=== PATIENT | male | born 1970 | race Caucasian/White ===

== ENCOUNTER 2018-07-07 10:48 | Day surgery (SDC) | payer OTHER ==
[2018-07-07] MEDS ORDERED: LIDOCAINE 1% 20 ML VIAL (10MG/ML) FOR IV START INTRADERMA ONE (13:28)
[2018-07-07] MEDS ORDERED: LACTATED RINGERS 1,000 ML IV ONE (13:30)
[2018-07-07 13:31] VITALS: RESP 16; TEMP 97.8
[2018-07-07] MEDS ORDERED: PROPOFOL 10 MG/ML 20 ML VIAL IV ONE (14:48)
--- NOTE | 2018-07-07 15:25 | P.PCN ---
Date of Procedure: 07/07/18 Procedure(s) Performed: Procedure: Total colonoscopy and biopsy. Preoperative diagnosis: Screening for neoplasia. Postoperative diagnosis: 2 diminutive polyps biopsied but no large polyps or cancer. Preparation: HalfLytely prep. Sedation: Was provided by anesthesia. Brief clinical history: The patient is a 48-year-old male who is scheduled for this evaluation for screening for neoplasia, age being his risk factor. The patient has no abdominal complaints, bleeding or anemia. This would be his first colonoscopy. Procedure: With the patient on his left lateral decubitus position and after informed consent and adequate sedation, the perianal area was inspected and it did not show any fissures or fistulas. There were no masses felt on digital rectal examination. The Olympus CFQ 160L video colonoscope was then inserted in the rectum in the usual fashion and advanced to the cecum. There were no obvious diverticular orifices noted. Two diminutive polyps were seen, 1 in the right colon and one in the sigmoid and these were biopsied, but there were no large polyps or tumors were seen. The mucosa appeared healthy. I retroflexed the endoscope in the rectum before the endoscope was withdrawn. The patient tolerated the procedure well. Plan: The patient was reassured. Discussed dietary measures. He will follow up with you as planned and I recommended repeat exam in 5 years.
[2018-07-07 15:41] VITALS: BP 111/76; PULSE 64
== END 2018-07-07 15:57 | disposition home or self-care (01) ==
LOC: ORWHC2ENDO 10:48
DX: Z12.11 Encounter for screening for malignant neoplasm of colon (principal); D12.2 Benign neoplasm of ascending colon
CPT/HCPCS: 88305; 45380; J2704

== ENCOUNTER 2021-07-01 06:52 | Emergency (ER) | payer OTHER ==
--- NOTE | 2021-07-01 08:08 | ED ---
General Adult HPI - General Chief complaint: Extremity Problem,Nontraumatic Stated complaint: Rt leg pain Time Seen by Provider: 07/01/21 07:04 Source: patient Mode of arrival: ambulatory - History of Present Illness Initial comments: 51 year-old male patient presents to the emergency department for evaluation of right leg pain. Patient states that two days ago he had intense tightness in his calf. States that he increased water intake and the pain seemed to resolve. Last evening tightness returned and he developed a sharp stabbing pain to the right thigh. States this morning the pain has moved up his thigh. He denies any swelling to the leg. Denies any skin color changes. Denies any fever or chills. No known injury. Pain worsens with ambulation. Patient denies any recent rash, cough, shortness of breath, chest pain, abdominal pain, nausea, vomiting, diarrhea, constipation, back pain, numbness, tingling, dizziness, weakness, hematuria, dysuria, urinary urgency, urinary frequency, headache, visual changes, or any other complaints. - Related Data Home Medications Medication Instructions Recorded Confirmed Allopurinol [Zyloprim] 300 mg PO DAILY 07/07/18 07/07/18 allopurinoL [Zyloprim] 100 tab PO DAILY 07/07/18 07/07/18 Allergies Allergy/AdvReac Type Severity Reaction Status Date / Time No Known Allergies Allergy Verified 07/01/21 07:01 Review of Systems ROS Statement: Those systems with pertinent positive or pertinent negative responses have been documented in the HPI. ROS Other: All systems not noted in ROS Statement are negative. Past Medical History Additional Past Medical History / Comment(s): GOUT FOR THE LAST 20 YEARS- TAKES ALLUPRINOL History of Any Multi-Drug Resistant Organisms: None Reported Past Surgical History: No Surgical Hx Reported Additional Past Surgical History / Comment(s): WISDOM TEETH PULLED -WAS PUT UNDER PER PT 32 YRS AGO Past Anesthesia/Blood Transfusion Reactions: No Reported Reaction Past Psychological History: No Psychological Hx Reported Smoking Status: Never smoker Past Alcohol Use History: Occasional Past Drug Use History: None Reported General Exam General appearance: alert, in no apparent distress, other (This is a well- developed, well-nourished adult male patient in no acute distress. Vital signs upon presentation are temperature 98.4F, pulse 82, respirations 19, blood pressure 149/91, pulse ox 98% on room air.) Respiratory exam: Present: normal lung sounds bilaterally. Absent: respiratory distress, wheezes, rales, rhonchi, stridor Cardiovascular Exam: Present: regular rate, normal rhythm, normal heart sounds. Absent: systolic murmur, diastolic murmur, rubs, gallop, clicks Extremities exam: Present: normal inspection, full ROM, normal capillary refill, other (Skin to the right leg is pink, warm, dry. Cap refill less than 3 seconds. Post tibial pulses are palpable and 2+. Pedal pulses found by Doppler. Foot temperature is equal, cool.). Absent: tenderness, pedal edema, joint swelling, calf tenderness Neurological exam: Present: alert, oriented X3, CN II-XII intact Psychiatric exam: Present: normal affect, normal mood Skin exam: Present: warm, dry, intact, normal color. Absent: rash Course Vital Signs 07/01/21 06:56 Temperature 98.4 F Pulse Rate 82 Respiratory 19 Rate Blood Pressure 149/91 O2 Sat by Pulse 98 Oximetry Medical Decision Making - Medical Decision Making 51 year-old male patient presents for evaluation of right calf and right thigh pain. Physical examination did reveal diminished pedal pulses, found with doppler, not palpable. Post tibial pulses palpable 2+. US venous doppler duplex was negative for DVT, did show rouleaux flow in the popliteal vein. Discussed this with the broadcast maintenance technician, reported no evidence for DVT in the more proximal veins. I did discuss findings and results with the patient. He will be discharged to follow-up with his primary care physician. I did also give him phone number for vascular surgery due to diminished pulses. Return parameters were discussed in detail. He verbalizes understanding and agrees with this plan. Case discussed with my attending Dr. Bey. - Radiology Data Radiology results: report reviewed, image reviewed Ultrasound of the right lower extremity was obtained. Report was reviewed in its entirety. Impression by Dr. Fuchs shows no evidence for DVT at this time. Rouleaux flow popliteal vein. Disposition Clinical Impression: Right leg pain, Decreased pedal pulses Disposition: HOME SELF-CARE Condition: Good Instructions (If sedation given, give patient instructions): Leg Pain (ED) Additional Instructions: Follow-up with vascular specialty area primary care physician for further evaluation after diminished pedal pulses. Take, Motrin for pain control. Return to the emergency department for any new, worsening, or concerning symptoms. Is patient prescribed a controlled substance at d/c from ED?: No Referrals: Braulio Melton DO [Primary Care Provider] - 1-2 days Romeo Weaver DO [STAFF PHYSICIAN] - 1-2 days Time of Disposition: 08:35
--- NOTE | 2021-07-01 08:19 | US ---
EXAMINATION TYPE: US venous doppler duplex LE RT DATE OF EXAM: 07/01/2021 8:09 AM COMPARISON: NONE CLINICAL HISTORY: Right thigh/calf pain. right leg pain SIDE PERFORMED: right TECHNIQUE: The lower extremity deep venous system is examined utilizing real time linear array sonog evelio with graded compression, doppler sonography and color-flow sonography. VESSELS IMAGED: Common Femoral Vein Deep Femoral Vein Greater Saphenous Vein * Femoral Vein Popliteal Vein Small Saphenous Vein * Proximal Calf Veins (* superficial vessels) Right Leg: no evidence of DVT. rouleaux flow popliteal vein IMPRESSION: No evidence for DVT at this time.
[2021-07-01 08:49] VITALS: BP 136/96; PULSE 72; RESP 16; TEMP 97.9
== END 2021-07-01 08:49 | disposition home or self-care (01) ==
LOC: EC 06:52
DX: M79.604 Pain in right leg (principal); R09.89 Other specified symptoms and signs involving the circulatory and respiratory systems; M10.9 Gout, unspecified; Z79.899 Other long term (current) drug therapy
CPT/HCPCS: 99283

== ENCOUNTER 2023-12-06 10:18 | Day surgery (SDC) | payer OTHER ==
[~2023-12-06 10:18] MED LIST: LIDOCAINE 1% (10MG/ML) FOR IV START INTRADERMA PRN
[2023-12-06] MEDS: LACTATED RINGERS 1,000 ML IV SCH ×2 (11:17→12:20)
[2023-12-06 11:20] VITALS: TEMP 97.6
[2023-12-06] MEDS ORDERED: PROPOFOL 10 MG/ML 20 ML VIAL IV ONE (12:24)
--- NOTE | 2023-12-06 12:38 | P.PCN ---
Date of Procedure: 12/06/23 Procedure(s) Performed: BRIEF HISTORY: Patient is a 53-year-old pleasant white male scheduled for an elective colonoscopy as a part of evaluation of prior history of colon polyps.' PROCEDURE PERFORMED: Colonoscopy with biopsy. PREOPERATIVE DIAGNOSIS: History of colon polyps. IV sedation per Anesthesia. PROCEDURE: After informed consent was obtained, the patient, was brought into the endoscopy unit. IV sedation was administered by Anesthesia under continuous monitoring. Digital rectal examination was normal. Initially the Olympus CF-160 flexible video colonoscope was then inserted in the rectum, gradually advanced into the cecum without any difficulty. Careful examination was performed as the scope was gradually being withdrawn. Ileocecal valve and the appendiceal orifice were visualized and appeared normal. Prep was excellent. Mucosa of the cecum, normal. In the ascending colon there was a 5 mm sessile polyp removed by cold biopsy. In the transverse colon there was a 3 mm polyp that was removed by cold biopsy. Rest of the ascending colon, transverse colon, descending colon, sigmo id colon, and rectum appeared normal. Retroflexion was performed in the rectum and no lesions were seen. The patient tolerated the procedure well. IMPRESSION: 5 mm ascending colon polyp status post cold biopsy 3 mm transverse colon polyp status post cold biopsy Rest of the colon appeared normal RECOMMENDATIONS: Findings of this examination were discussed with the patient as well as his family. He was advised to follow with the biopsy results. If the biopsy results adenoma he can have a repeat colonoscopy in 5 years.
[2023-12-06 13:07] VITALS: BP 129/89; PULSE 77; RESP 18
== END 2023-12-06 13:10 | disposition home or self-care (01) ==
LOC: ORWHC2ENDO 10:18
PROVIDERS: ATTEND Internal Medicine Gastroenterology
DX: Z12.11 Encounter for screening for malignant neoplasm of colon (principal); D12.2 Benign neoplasm of ascending colon; I10 Essential (primary) hypertension; M10.9 Gout, unspecified; Z79.899 Other long term (current) drug therapy; Z86.010 Personal history of colon polyps
CPT/HCPCS: 88305; 45380; J2704